=== PATIENT | male | born 1970 | race Caucasian/White ===

== ENCOUNTER 2016-03-26 09:08 | Day surgery (SDC) | payer MEDICARE, OTHER ==
[2016-03-24 11:08] LABS: BASOPHILS 0.2 %; BASOPHILS ABSOLUTE 0.02 10/3/uL (0.0-0.16); EOSINOPHILS 2.1 %; EOSINOPHILS ABSOLUTE 0.17 10/3/uL (0.0-0.53); HEMATOCRIT 43.1 % (40.0-51.0); HEMOGLOBIN 14.1 g/dL (13.6-17.8); IMMATURE GRANULOCYTES 0.1 %; IMMATURE GRANULOCYTES ABSOLUTE 0.01 10/3/uL (0.0-0.11); LYMPHOCYTES 18.4 %; LYMPHOCYTES ABSOLUTE 1.52 10/3/uL (0.67-4.30); MANUAL DIFF NO %; MEAN CORPUS HGB CONC 32.7 g/dL (32.0-36.0); MEAN CORPUSCULAR HEMOGLOB 25.9 pg (26.0-34.0); MEAN CORPUSCULAR VOLUME 79.1 fL (80-100); MEAN PLATELET VOLUME 9.1 fL (9.2-13.0); MONOCYTES 7.2 %; MONOCYTES ABSOLUTE 0.59 10/3/uL (0.21-1.20); NEUTROPHILS ABSOLUTE 5.93 10/3/uL (2.02-8.40); PLATELET COUNT 359 10/3/uL (150-400); RBC DISTRIBUTION WIDTH 18.6 % (12.0-16.0); RED CELL COUNT 5.45 10/6/uL (4.7-6.1); WHITE BLOOD CELLS 8.2 10/3/uL (4.5-10.5)
[2016-03-24 11:15] LABS: INTERNATIONAL NORMAL RATI 1.1 UNITS (-); PARTIAL THROMBO TIME 25.5 SEC (22.5-37.2); PROTIME (NOT ORD) 14.3 SEC (12.0-14.5)
[2016-03-24 11:19] LABS: CALCIUM, SERUM 8.7 MG/DL (8.5-10.4); CHLORIDE, SERUM 102 MMOL/L (96-112); CO2 (CARBON DIOXIDE) 25 MMOL/L (24-34); CREATININE 0.66 MG/DL (0.70-1.30); GFR AFRICAN AMERICAN 135 ML/MIN (>=60); GFR NON AFRICAN AMERICAN 117 ML/MIN (>=60); GLUCOSE, SERUM 95 MG/DL (60-99); POTASSIUM, SERUM 3.6 MMOL/L (3.5-5.3); SODIUM, SERUM 137 MMOL/L (135-148)
[2016-03-24 11:20] LABS: BUN (BLOOD UREA NITROGEN) 14 MG/DL (6-23)
--- NOTE | ~2016-03-26 | OP ---
Record Of Operation [facility] [address] [place]. [address] NAME: JADE HALL : [birth year] STATUS : [facility]#: [id number] AGE: 45 ADM/REG DATE : 03/26/16 MR#: [id number] REPORT SERV DATE: 03/26/16 DICTATED BY: PARESH CARRANZA DATE: 03/26/16 REPORT STATUS : Draft TRANSCRIBED BY: MODManny DATE: 03/26/16 DATE OF PROCEDURE: 03/26/2016 PREOPERATIVE DIAGNOSES: 1. Left renal calculi. 2. Bladder calculus. 3. Gross hematuria. 4. History of resistant urinary tract infection. 5. Neurogenic bladder on CIC. POSTOPERATIVE DIAGNOSES: 1. Left renal calculi. 2. Bladder calculus. 3. Gross hematuria. 4. History of resistant urinary tract infection. 5. Neurogenic bladder on CIC. PROCEDURE PERFORMED: Cystoscopy, left retrograde pyelogram, left flexible ureterorenoscopy, with laser fragmentation of multiple left renal stones, removal of bladder stone, left ureteral stent placement. SURGEON: Paresh Carranza M.D. ANESTHESIA: General. ESTIMATED BLOOD LOSS: 15 mL. INDICATIONS: This is a 45-year-old, white male, with spina bifida. He has a neurogenic bladder and chronic retention and his bladder is managed with clean intermittent catheterizations. He has been having left flank pain which has been intractable. He had a sizable left renal calculus and has already undergone one ESWL procedure with questionable fragmentation. Additionally, he has had a history of a resistant UTI and has been managed with Macrobid for this. We are planning a cystoscopy, removal of bladder stone if encountered, and ureteroscopy, and laser renal stones, along with possible bladder biopsy. Risks of infection, bleeding, failure, need for further surgery have been discussed. PROCEDURE IN DETAIL: The patient was taken to the operating room and underwent a general anesthetic. His external genitalia were sterilely prepped and draped, and he was placed in the lithotomy position on the table. A 20-Brazilian cystoscope sheath with 30-degree lens was advanced per urethra with the aid of the video monitor. The anterior urethra was diffusely mildly scarred, but did admit the scope. The prostatic urethra seen was scarred as well and was relatively short with an elevated bladder neck. The bladder was inspected and the mucosa was mildly irritated throughout, the bladder was fairly heavily trabeculated with cellule formation. There were no rajinder diverticula, there were no rajinder bladder tumors. Single orifices were seen bilaterally. There was about a 5 or 6 mm stone lying on the floor the bladder. This was grasped with flexible graspers and removed. A left retrograde Record Of Operation [facility] [address] [place]. [address] NAME: JADE HALL : 70 STATUS : [facility] PAT#: [id number] AGE: 45 ADM/REG DATE : 03/26/16 MR#: [id number] REPORT SERV DATE: 03/26/16 DICTATED BY: PARESH CARRANZA DATE: 03/26/16 REPORT STATUS : Draft TRANSCRIBED BY: ANNABELLA DATE: 03/26/16 pyelogram was then obtained showing a petite left ureter and a petite left collecting system with what looked like a lower pole filling defect. An 0.038 guidewire was advanced up into the collecting system and then a 9.5-11-Brazilian ureteral access sheath was advanced over the guidewire. A second guidewire was placed through the access sheath and the sheath and obturator were then reinserted over one of the two guidewires leaving the other in place as a safety wire. The flexible ureteroscope was advanced up into the proximal ureter and on up into the collecting system of the kidney. The visibility was excellent and the collecting system was systematically inspected. There was about a 5 mm stone in an upper pole calyx. There were some roughly 4 or 5 mm stones in the midpole calyx and there was a larger stone measuring about 7 or 8 mm in size, as well as a lot of smaller stone fragments in the lower pole. We used a NGage basket to grasp the largest fragments of stone from the lower pole and repositioned toward the upper pole area of the kidney. The 200 micron laser fiber was then used to fragment all of the stones that we could find under direct vision down into 1 to 2 mm fragments. In this process the lower pole area was reinspected and no large stones were noted, although, multiple tiny fragments were seen there as well. Some of these were flushed out of the lower pole and into the pelvis of the kidney. When it was deemed that no significant sizable fragments of stone were remaining, the scope was removed down through the ureter under direct vision, with no ureteral calculi noted. The rigid cystoscope was advanced back over the guidewire, and a 5-Brazilian x 26 cm Polaris stent was advanced such that the proximal end of the stent was observed to coil in the pelvis of the kidney under fluoroscopic guidance, and the distal end of the stent was visually observed to coil in the bladder following removal of the guidewire. The stent was left connected to a string dangle which was taped to the patient's penis. An 18-Brazilian catheter was then advanced into the bladder and left indwelling. I did not feel any of the bladder lesions merited a biopsy, so, no bladder biopsies were performed. The patient was then taken to recovery in stable condition. WON/ANNABELLA Paresh Carranza M.D. / [id number] CC: Darío Lynch M.D.
[~2016-03-26 09:08] MED LIST: CATPATCH1 TOP; CIP5 PO; COUMADIN3 MG PO; COZ50 PO; CUBICIN500 MG IV; FLAG500TAB PO; FLONASE NASAL S16 GM NAS; FLORASTOR250 MG PO; FLOVENT110 INH; FLOVENT220 INH; HYDROCHLOROT25 MG PO; MACROBID PO; MULTI VIT PO; NORV5 PO; PB30 PO; PB30 SL; PREV30 PO; PREV30 SL; PRILOSEC40 MG PO; ROCEPH IV; SODBICAR10 PO; VITAMIN PO; [UNRECOGNIZED DRUG - CODE] PO; [UNRECOGNIZED DRUG - OTHER] PO
[2016-03-26 10:09] LABS: PROTIME (NOT ORD) 13.4 SEC (12.0-14.5)
[2016-03-30 18:33] LABS: STONE COMPOSITION TWO DNR (())
[2016-04-20] MEDS ORDERED: C25 PO (12:57)
== END 2016-03-26 16:12 | disposition home or self-care (01) ==
LOC: SDC 09:08
PROVIDERS: Urology
PROC: 0T778DZ Dilation of Left Ureter with Intraluminal Device, Via Natural or Artificial Opening Endoscopic (ICD-10-PCS; 2016-03-26)
PROC: 0TCB8ZZ Extirpation of Matter from Bladder, Via Natural or Artificial Opening Endoscopic (ICD-10-PCS; 2016-03-26)
PROC: 0TF48ZZ Fragmentation in Left Kidney Pelvis, Via Natural or Artificial Opening Endoscopic (ICD-10-PCS; principal; 2016-03-26 10:45)
DX: N20.0 Calculus of kidney (principal); N21.0 Calculus in bladder; I10 Essential (primary) hypertension; Q05.6 Thoracic spina bifida without hydrocephalus; G40.909 Epilepsy, unspecified, not intractable, without status epilepticus; Z87.442 Personal history of urinary calculi; K44.9 Diaphragmatic hernia without obstruction or gangrene; K21.0 Gastro-esophageal reflux disease with esophagitis; Z91.040 Latex allergy status; Z87.440 Personal history of urinary (tract) infections; Z88.1 Allergy status to other antibiotic agents; Z88.5 Allergy status to narcotic agent; Z88.8 Allergy status to other drugs, medicaments and biological substances; Z79.02 Long term (current) use of antithrombotics/antiplatelets; Z79.899 Other long term (current) drug therapy; M41.9 Scoliosis, unspecified; D64.9 Anemia, unspecified; Z98.890 Other specified postprocedural states
CPT/HCPCS: 80048; 82365; 85025; 85610; 85730; 93005; C1758; C1894; C2617; J2185; J2250; J2370; J2405; J2710; J3010; Q9967

== ENCOUNTER 2016-04-21 07:37 | Day surgery (SDC) | payer MEDICARE, OTHER ==
--- NOTE | ~2016-04-21 | EGD ---
EGD REPORT [facility] [address] [place] [address] NAME: JADE STUART : 70 [place] [facility] [place]#: [id number] AGE: 45 ADM/REG DATE : 04/21/16 MR#: [id number] REPORT SERV DATE: 04/21/16 DICTATED BY: PARESH HALE DATE: 04/21/16 REPORT STATUS : Draft TRANSCRIBED BY: [employer] DATE: 04/21/16 Endoscopy Center Patient Name: Jade Stuart Date of : 1970 Attending MD: PARESH HALE MD Procedure Date No Time: 04/21/2016 Procedure: Upper GI endoscopy Indications: Dysphagia Referring MD: Lidya DUENAS Medicines: as per anesthesia Complications: No immediate complications. Procedure: Pre-Anesthesia Assessment: - ASA Grade Assessment: III - A patient with severe systemic disease. After obtaining informed consent, the endoscope was passed under direct vision. Throughout the procedure, the patient's blood pressure, pulse, and oxygen saturations were monitored continuously. The GIF H190 [id number] was introduced through the mouth, and advanced to the third part of duodenum. The upper GI endoscopy was accomplished without difficulty. The patient tolerated the procedure. Findings: Food was found in the upper third of the esophagus. removed with hernández net A benign-appearing, intrinsic moderate stenosis was found in the middle third of the esophagus and was traversed. A guidewire was placed under fluoroscopic guidance and the scope was withdrawn. Dilation was performed with a Savary dilator with no resistance at 48 Fr. Multiple sessile polyps were found in the gastric body. The cardia and gastric fundus were normal on retroflexion. The examined duodenum was normal. Impression: - Food in the upper third of the esophagus. - Benign-appearing esophageal stricture. Dilated. - Multiple gastric polyps. - Normal examined duodenum. Recommendation: - Continue present medications. Procedure Code(s): --- Professional --- 64385, Esophagogastroduodenoscopy, flexible, transoral; with insertion of guide wire followed by passage of dilator(s) through esophagus over guide wire EGD REPORT [facility] [address] [facility] [place]. [address] NAME: JADE STUART : 70 [place] [facility] [place]#: [id number] AGE: 45 ADM/REG DATE : 04/21/16 MR#: [id number] REPORT SERV DATE: 04/21/16 DICTATED BY: PARESH HALE DATE: 04/21/16 REPORT STATUS : Draft TRANSCRIBED BY: [employer] DATE: 04/21/16 Diagnosis Code(s): --- Professional --- T18.128A, Food in esophagus causing other injury, initial encounter K22.2, Esophageal obstruction K31.7, Polyp of stomach and duodenum R13.10, Dysphagia, unspecified CPT copyright 2013 [employer]. All rights reserved. The codes documented in this report are preliminary and upon assignment manager review may be revised to meet current compliance requirements. PARESH HALE MD 04/21/2016 10:38 AM This report has been signed electronically. Number of Addenda: 0 Note Initiated On: 04/21/2016 9:55 AM Scope Withdrawal Time 0 hours 0 minutes 0 seconds [address] [place] [address]
[~2016-04-21 07:37] MED LIST changes: +C25 PO
[2016-04-21 08:35] LABS: INTERNATIONAL NORMAL RATI 1.3 UNITS (-)
[2016-04-21 08:37] LABS: PROTIME (NOT ORD) 15.8 SEC (12.0-14.5)
== END 2016-04-21 23:59 | disposition home or self-care (01) ==
LOC: DMU 07:37
PROVIDERS: Anesthesiology; Internal Medicine Gastroenterology
PROC: 0D728ZZ Dilation of Middle Esophagus, Via Natural or Artificial Opening Endoscopic (ICD-10-PCS; principal; 2016-04-21 09:00)
DX: K22.2 Esophageal obstruction (principal); K31.7 Polyp of stomach and duodenum; Q05.9 Spina bifida, unspecified; G40.909 Epilepsy, unspecified, not intractable, without status epilepticus; I10 Essential (primary) hypertension; N20.0 Calculus of kidney; Z88.5 Allergy status to narcotic agent; Z91.040 Latex allergy status; Z79.01 Long term (current) use of anticoagulants; Z79.899 Other long term (current) drug therapy; Z86.718 Personal history of other venous thrombosis and embolism; Z86.711 Personal history of pulmonary embolism
CPT/HCPCS: 76000; 85610; J2405

== ENCOUNTER 2016-05-26 07:58 | Day surgery (SDC) | payer MEDICARE, OTHER ==
[2016-05-19 13:42] LABS: BASOPHILS 0.4 %; BASOPHILS ABSOLUTE 0.04 10/3/uL (0.0-0.16); EOSINOPHILS 1.8 %; EOSINOPHILS ABSOLUTE 0.16 10/3/uL (0.0-0.53); HEMATOCRIT 39.4 % (40.0-51.0); IMMATURE GRANULOCYTES 0.3 %; IMMATURE GRANULOCYTES ABSOLUTE 0.03 10/3/uL (0.0-0.11); LYMPHOCYTES 17.8 %; LYMPHOCYTES ABSOLUTE 1.63 10/3/uL (0.67-4.30); MEAN CORPUSCULAR HEMOGLOB 26.1 pg (26.0-34.0); MEAN PLATELET VOLUME 8.7 fL (9.2-13.0); MONOCYTES 7.3 %; MONOCYTES ABSOLUTE 0.67 10/3/uL (0.21-1.20); NEUTROPHILS 72.4 %; NEUTROPHILS ABSOLUTE 6.61 10/3/uL (2.02-8.40); RBC DISTRIBUTION WIDTH 15.3 % (12.0-16.0); RED CELL COUNT 4.99 10/6/uL (4.7-6.1); WHITE BLOOD CELLS 9.1 10/3/uL (4.5-10.5)
[2016-05-19 13:44] LABS: MANUAL DIFF NO %; PLATELET COUNT 398 10/3/uL (150-400)
[2016-05-19 13:45] LABS: BUN (BLOOD UREA NITROGEN) 15 MG/DL (6-23); CALCIUM, SERUM 9.2 MG/DL (8.5-10.4); CHLORIDE, SERUM 105 MMOL/L (96-112); CO2 (CARBON DIOXIDE) 26 MMOL/L (24-34); CREATININE 0.63 MG/DL (0.70-1.30); GFR AFRICAN AMERICAN 138 ML/MIN (>=60); GFR NON AFRICAN AMERICAN 119 ML/MIN (>=60); GLUCOSE, SERUM 93 MG/DL (60-99); INTERNATIONAL NORMAL RATI 1.6 UNITS (-); PARTIAL THROMBO TIME 29.9 SEC (22.5-37.2); POTASSIUM, SERUM 3.8 MMOL/L (3.5-5.3); SODIUM, SERUM 140 MMOL/L (135-148)
[2016-05-19 13:46] LABS: PROTIME (NOT ORD) 19.2 SEC (12.0-14.5)
--- NOTE | ~2016-05-26 | OP ---
Record Of Operation [facility] [address] [place]. [address] NAME: JADE HALL : 70 STATUS : [facility] [place] PAT#: [id number] AGE: 45 ADM/REG DATE : 05/26/16 MR#: [id number] REPORT SERV DATE: 05/26/16 DICTATED BY: PARESH CARRANZA DATE: 05/26/16 REPORT STATUS : Draft TRANSCRIBED BY: MODL DATE: 05/26/16 DATE OF PROCEDURE: 05/26/2016 PREOPERATIVE DIAGNOSIS: Multiple left renal stones. POSTOPERATIVE DIAGNOSIS: Multiple left renal stones. PROCEDURE PERFORMED: Cystoscopy, left retrograde pyelogram, left flexible ureterorenoscopy with stone extraction, and stent placement. SURGEON: Paresh Carranza M.D. ANESTHESIA: General. ESTIMATED BLOOD LOSS: 5 mL. INDICATIONS: This is a 45-year-old, spina bifida, white male, with a neurogenic bladder managed with CIC, these had left renal stones and has undergone ESWL, followed by endoscopic laser fragmentation. He still has flank pain and has not been able to pass fragments very well. CT demonstrates multiple stone fragments that remain within the kidney. There has been no evidence of obstruction on CT however. We are planning endoscopy with extraction of stone fragments and stent placement. Risks of infection, bleeding, failure to relieve his pain etc. were reviewed. PROCEDURE IN DETAIL: The patient was taken to the operating room and underwent a general anesthetic. He was placed in the lithotomy position on the table, and his external genitalia were sterilely prepped and draped. The 22-Burmese cystoscope sheath with 30-degree lens was inserted under direct vision per urethra with the aid of the video monitor. There was mild diffuse scarring in the urethra, it did admit the scope, however, the prostate was short and minimally occlusive. The bladder was inspected and the mucosa looked a little irritated and the bladder seemed like it was slightly thick walled. There were no tumors or mass lesions. There were no stones in the bladder. Single orifices were seen bilaterally. A left retrograde pyelogram was obtained which showed a normal petite looking ureter and a petite looking renal collecting system. I was unable to definitively recognize any stones. A guidewire was placed up into the kidney under fluoroscopic guidance and a 9.5/11-Burmese ureteral access sheath was advanced over the guidewire up into the proximal ureter. A second guidewire was placed through the sheath and the sheath and obturator were reinserted over one of the two guidewires leaving the other in place as a safety wire. The flexible ureteroscope was then advanced through the access sheath and on up into the proximal ureter and collecting system of the kidney. Visibility was pretty good. The calices were thoroughly inspected. There were multiple small calcifications lying in various calices. There were no large stones present. The largest fragments I saw were perhaps in the 3 mm range if that. I used a NGage basket and removed multiple small fragments of stone anywhere we happen to encounter them. We finally got to the point where the stones were so small we could not engage them with the basket and therefore the renal collecting system was reinspected and with no new findings, the scope was withdrawn down through the ureter. No Record Of Operation [address] [place]. [address] NAME: JADE HALL : 70 STATUS : [facility] [place] PAT#: [id number] AGE: 45 ADM/REG DATE : 05/26/16 MR#: [id number] REPORT SERV DATE: 05/26/16 DICTATED BY: PARESH CARRANZA DATE: 05/26/16 REPORT STATUS : Draft TRANSCRIBED BY: ANNABELLA DATE: 05/26/16 significant stones were noted in the ureter either. The cystoscope was then replaced over the guidewire and a 5-Burmese x 26 cm Polaris stent was advanced over the guidewire such that the proximal end of the stent was observed to coil in the pelvis of the kidney under fluoroscopic guidance, and the distal end of the stent was visually observed to coil in the bladder, following removal of the guidewire. The stent was left connected to a string dangle which was taped to the patient's penis. An 18-Burmese latex-free An catheter was placed as well to gravity drainage. The patient was then taken to recovery in stable condition. WON/ANNABELLA Paresh Carranza M.D. / [id number] CC: Darío Lynch. Moshe Joy M.D.
[2016-05-26 08:42] LABS: INTERNATIONAL NORMAL RATI 1.1 UNITS (-); PROTIME (NOT ORD) 14.3 SEC (12.0-14.5)
[2016-06-01 14:24] LABS: STONE COMPOSITION TWO DNR (())
== END 2016-05-26 16:58 | disposition home or self-care (01) ==
LOC: SDC 07:58
PROVIDERS: Urology
PROC: 0T778DZ Dilation of Left Ureter with Intraluminal Device, Via Natural or Artificial Opening Endoscopic (ICD-10-PCS; 2016-05-26)
PROC: BT1FZZZ Fluoroscopy of Left Kidney, Ureter and Bladder (ICD-10-PCS; 2016-05-26)
PROC: 0TC78ZZ Extirpation of Matter from Left Ureter, Via Natural or Artificial Opening Endoscopic (ICD-10-PCS; principal; 2016-05-26 09:45)
DX: N20.0 Calculus of kidney (principal); Q05.9 Spina bifida, unspecified; N31.9 Neuromuscular dysfunction of bladder, unspecified; G40.909 Epilepsy, unspecified, not intractable, without status epilepticus; I10 Essential (primary) hypertension; M41.9 Scoliosis, unspecified; K21.9 Gastro-esophageal reflux disease without esophagitis; K44.9 Diaphragmatic hernia without obstruction or gangrene; K31.7 Polyp of stomach and duodenum; K20.0 Eosinophilic esophagitis; Z86.711 Personal history of pulmonary embolism; Z98.2 Presence of cerebrospinal fluid drainage device; Z88.1 Allergy status to other antibiotic agents; Z88.5 Allergy status to narcotic agent; Z88.8 Allergy status to other drugs, medicaments and biological substances; Z79.01 Long term (current) use of anticoagulants; Z79.899 Other long term (current) drug therapy; Z91.040 Latex allergy status; Z98.890 Other specified postprocedural states
CPT/HCPCS: 74420; 80048; 82365; 85025; 85610; 85730; 93005; C1758; C1894; C2617; J1956; J2250; J2370; J2405; J2710; J3010; Q9967

== ENCOUNTER 2016-08-11 11:20 | Day surgery (SDC) | payer MEDICARE, OTHER ==
--- NOTE | ~2016-08-11 | EGD ---
EGD REPORT [facility] [address] [place] [address] NAME: JADE STUART : 70 STATUS : [facility] [place] PAT#: [id number] AGE: 45 ADM/REG DATE : 08/11/16 MR#: [id number] REPORT SERV DATE: 08/11/16 DICTATED BY: PARESH HALE DATE: 08/11/16 REPORT STATUS : Draft TRANSCRIBED BY: [employer] DATE: 08/11/16 Endoscopy Center Patient Name: Jade Stuart Date of : 1970 Attending MD: PARESH HALE MD Procedure Date No Time: 08/11/2016 Procedure: Upper GI endoscopy Indications: Dysphagia Referring MD: Lidya DUENAS Medicines: as per anesthesia Complications: No immediate complications. Procedure: Pre-Anesthesia Assessment: - ASA Grade Assessment: III - A patient with severe systemic disease. After obtaining informed consent, the endoscope was passed under direct vision. Throughout the procedure, the patient's blood pressure, pulse, and oxygen saturations were monitored continuously. The GIF H190 [id number] was introduced through the mouth, and advanced to the third part of duodenum. The upper GI endoscopy was accomplished without difficulty. The patient tolerated the procedure. Findings: A benign-appearing, intrinsic moderate stenosis was found in the middle third of the esophagus and was traversed. A guidewire was placed under fluoroscopic guidance and the scope was withdrawn. Dilation was performed with a Savary dilator with no resistance at 48 Fr. A few sessile polyps were found in the gastric body. The cardia and gastric fundus were normal on retroflexion. The examined duodenum was normal. Impression: - Benign-appearing esophageal stricture. Dilated. - A few gastric polyps. - Normal examined duodenum. Recommendation: - Continue present medications. Procedure Code(s): --- Professional --- 37465, Esophagogastroduodenoscopy, flexible, transoral; with insertion of guide wire followed by passage of dilator(s) through esophagus over guide wire Diagnosis Code(s): --- Professional --- K22.2, Esophageal obstruction EGD REPORT [place] [address] [address] NAME: JADE STUART : 70 STATUS : REG [facility] [place] PAT#: [id number] AGE: 45 ADM/REG DATE : 08/11/16 MR#: [id number] REPORT SERV DATE: 08/11/16 DICTATED BY: PARESH HALE. DATE: 08/11/16 REPORT STATUS : Draft TRANSCRIBED BY: [employer] DATE: 08/11/16 K31.7, Polyp of stomach and duodenum R13.10, Dysphagia, unspecified CPT copyright 2013 [employer]. All rights reserved. The codes documented in this report are preliminary and upon supervisor pipeline review may be revised to meet current compliance requirements. PARESH HALE MD 08/11/2016 4:02 PM This report has been signed electronically. Number of Addenda: 0 Note Initiated On: 08/11/2016 2:50 PM [facility] [address] [id number]
[2016-08-11 12:47] LABS: INTERNATIONAL NORMAL RATI 1.3 UNITS (-)
[2016-08-11 12:48] LABS: PROTIME (NOT ORD) 16.5 SEC (12.0-14.5)
== END 2016-08-11 23:59 | disposition home health service (06) ==
LOC: DMU 11:20
PROVIDERS: Anesthesiology; Internal Medicine Gastroenterology
PROC: 0D728ZZ Dilation of Middle Esophagus, Via Natural or Artificial Opening Endoscopic (ICD-10-PCS; principal; 2016-08-11 13:00)
DX: K22.2 Esophageal obstruction (principal); K31.7 Polyp of stomach and duodenum; R56.9 Unspecified convulsions; I10 Essential (primary) hypertension; K21.9 Gastro-esophageal reflux disease without esophagitis; D64.9 Anemia, unspecified; Z86.718 Personal history of other venous thrombosis and embolism; Z88.5 Allergy status to narcotic agent; Z91.040 Latex allergy status; Z88.8 Allergy status to other drugs, medicaments and biological substances; Z87.442 Personal history of urinary calculi; Z87.440 Personal history of urinary (tract) infections
CPT/HCPCS: 76000; 85610